=== PATIENT | female | born 1950 | race Caucasian/White ===

== ENCOUNTER → 2021-01-14 | Outpatient (CLI) | payer MEDICARE ==
--- NOTE | 2021-01-14 11:11 | KCIC ---
MRI of the lumbar spine without contrast 01/14/2021 CLINICAL HISTORY: Chronic low back pain. The pain is worsening over the last year. Bilateral feet num bness. Neurogenic claudication. TECHNIQUE: Unenhanced T1-weighted and T2-weighted sagittal and axial and inversion recovery sagittal images of the lumbar spine were obtained. FINDINGS: Minimal S-shaped curvature of the thoracolumbar spine is seen. Mild anterolisthesis of L4 i n relation to L5 is noted. Degenerative signal changes are seen involving all of the disks of the lum bar spine. Degenerative signal changes are seen within the marrow surrounding these discs. Loss of he ight of the L2-3, L3-4, L4-5 discs is noted. The conus medullaris is normal morphology, position, and signal characteristics. Rounded high signal intensity lesions are seen scattered throughout both kid neys on the T2-weighted images. These measure 3 mm to 1 cm in size. They likely represent cysts. No f urther imaging evaluation is recommended. At the L1-2 disc space there is a mild to moderate generalized disc bulge. Superimposed on this disc bulge is a central/left paracentral focal disc protrusion. This measures 2 mm in AP diameter. Degener ative changes are seen involving the facet joints bilaterally. There is mild ligamentum flavum hypert rophy bilaterally. There are small facet joint effusions bilaterally. These findings when combined do not result in significant central spinal canal or neural foraminal stenosis. At the L2-3 disc space there is a mild to moderate generalized disc bulge. Degenerative changes are s een involving the facet joints bilaterally. There is moderate ligamentum flavum hypertrophy bilateral ly. There are small facet joint effusions bilaterally. There is prominence of the posterior epidural fat. These findings when combined result in mild central spinal canal stenosis. No neural foraminal s tenosis is seen. At the L3-4 disc space there is a mild to moderate generalized disc bulge. Superimposed on this disc bulge is a left paracentral focal disc protrusion. This measures 3 mm in AP diameter. Degenerative ch anges are seen involving the facet joints bilaterally. There are small facet joint effusions bilatera lly. There is prominence of the posterior epidural fat. These findings when combined result in mild t o moderate left greater than right central spinal canal stenosis. No neural foraminal stenosis is see n. At the L4-5 disc space there is a moderate generalized disc bulge. This is eccentric to the left. Deg enerative changes are seen involving the facet joints, left greater than right. There is moderate to severe ligamentum flavum hypertrophy bilaterally. Small to moderate-sized facet joint effusions are s een bilaterally. These findings when combined result in severe left greater than right central spinal canal stenosis. Mild to moderate bilateral neural foraminal stenosis is seen. At the L5-S1 disc space there is a mild generalized disc bulge. Degenerative changes are seen involvi ng the facet joints bilaterally. There is mild ligamentum flavum hypertrophy bilaterally. There are s mall facet joint effusions bilaterally. These findings do not result in significant central spinal ca nal or neural foraminal stenosis. IMPRESSION: The changes of degenerative disc disease are seen throughout the lumbar spine. These find ings result in mild central spinal canal stenosis at L2-3, mild to moderate left greater than right c entral spinal canal stenosis at L3-4 and severe left greater than right central spinal canal stenosis at L4-5. Mild to moderate bilateral neural foraminal stenosis is seen at L4-5. Electronically signed by: Bradley Wayne MD (01/14/2021 11:09 AM) [id number]
== END ==
LOC: KCIC MRI 09:02
PROVIDERS: ATTEND Family Medicine
DX: M51.36 Other intervertebral disc degeneration, lumbar region (principal); M48.061 Spinal stenosis, lumbar region without neurogenic claudication; M48.062 Spinal stenosis, lumbar region with neurogenic claudication; M47.817 Spondylosis without myelopathy or radiculopathy, lumbosacral region
CPT/HCPCS: 72148